=== PATIENT | male | born 1995 | race Caucasian/White ===

== ENCOUNTER 2016-11-23 16:18 | Emergency (ER) | payer MEDICAID ==
[2016-11-23 17:37] VITALS: BP 131/65
== END 2016-11-23 17:37 | disposition home or self-care (01) ==
LOC: ED 16:18
DX: S49.92XA Unspecified injury of left shoulder and upper arm, initial encounter (principal); R03.0 Elevated blood-pressure reading, without diagnosis of hypertension; X58.XXXA Exposure to other specified factors, initial encounter; Y93.89 Activity, other specified; Y92.89 Other specified places as the place of occurrence of the external cause; Y99.8 Other external cause status